=== PATIENT | male | born 2000 | race African-American/Black ===

== ENCOUNTER 2023-12-31 22:02 | Emergency (ER) | payer OTHER ==
[~2023-12-31] VITALS: Ht 167.6 cm; Wt 99.0 kg
[2023-12-31 22:08] VITALS: BP 142/76; PULSE 96; RESP 20; TEMP 98.1
== END 2023-12-31 23:34 | disposition left against medical advice (07) ==
LOC: EMS 22:03
DX: M25.511 Pain in right shoulder (principal); Z53.21 Procedure and treatment not carried out due to patient leaving prior to being seen by health care provider